=== PATIENT | female | born 1945 | race Caucasian/White ===

== ENCOUNTER 2024-09-18 12:02 | Outpatient (CLI) | payer OTHER, SELFPAY | END 2024-09-18 12:03 | disposition home or self-care (01) | LOC: NFLDREF 09-19 11:43 | PROVIDERS: PCP Nurse Practitioner Family; Referring Provider Internal Medicine; Visit Provider Nurse Practitioner Family | DX: N30.90 Cystitis, unspecified without hematuria (principal) | CPT/HCPCS: 87086 ==

== ENCOUNTER 2025-08-21 14:30 | Outpatient (CLI) | payer OTHER, SELFPAY | END 2025-08-21 14:31 | disposition home or self-care (01) | LOC: NFLDREF 08-30 11:39 | PROVIDERS: PCP Nurse Practitioner Family; Referring Provider Nurse Practitioner Family; Visit Provider Nurse Practitioner Family | DX: R35.0 Frequency of micturition (principal); R82.90 Unspecified abnormal findings in urine; Z87.440 Personal history of urinary (tract) infections | CPT/HCPCS: 87086; 87186 ==

== ENCOUNTER 2025-09-24 13:11 | Outpatient (CLI) | payer OTHER, SELFPAY | END 2025-09-24 13:12 | disposition home or self-care (01) | PROVIDERS: PCP Nurse Practitioner Family; Visit Provider Nurse Practitioner Family | DX: E78.2 Mixed hyperlipidemia (principal); I10 Essential (primary) hypertension | CPT/HCPCS: 80053; 80061 ==